=== PATIENT | female | born 1945 | race Caucasian/White ===

== ENCOUNTER 2021-02-27 07:03 | Day surgery (SDC) | payer MEDICARE, SELFPAY ==
[2021-02-27] VITALS (16 sets, daily range): BP systolic 59–151; BP diastolic 47–89; PULSE 75–86; RESP 12–18; TEMP 36.4–37.2; O2SAT 92–97; BMI 51.1
[2021-02-27 08:28] LABS: Hematocrit 37.1 % (37-47); Mean Corpuscular Hgb 31.6 pg (27.0-32.0); Mean Corpuscular Volume 90.3 fL (81-99); Mean Platelet Vol. 11.8 fl (6.2-12.0); Platelet Count 250 K/mm3 (150-450); RBC Distribution Width CV 14.3 % (11.6-14.6); RBC Distribution Width SD 46.9 fl (35.1-43.9); Red Blood Count 4.11 M/mm3 (4.2-5.4); White Blood Count 10.2 K/mm3 (4.4-11.0)
[2021-02-27 08:43] LABS: Anion Gap 8 (5-15); BUN 19 mg/dL (7-18); BUN/Creat Ratio 23.1 RATIO (10-20); Calcium,Total 9.2 mg/dL (8.5-10.1); Chloride 103 mmol/L (98-107); Creatinine, Serum 0.82 mg/dL (0.55-1.02); EST Glomerular Filtration Rate 72 mL/min (>60); Est Glom Filt Rate - Afr Amer 87 mL/min (>60); Estimated Creatinine Clearance 109.18 ml/min; Glucose 138 mg/dL (74-106); Potassium 3.1 mmol/L (3.5-5.1); Sodium Level 140 mmol/L (136-145)
--- NOTE | 2021-02-27 09:23 | PCM.HP.STD ---
HPI - General HPI Narrative CUCA FOOTE, is a 75 F who presents for urethral dilation and cystoscopy with possible bladder biopsy for recurrent urinary tract infections with urethral stenosis/stricture. Had infection last week, currently taking fosfomycin. Symptoms have improved. No fever. Not sure if still with infection. [facility] Medical History (Updated 02/27/21 @ 09:[address] Gina Ferrer MD) Arthritis Cancer Cardiology follow-up encounter Guillain-[place] High cholesterol History of echocardiogram History of edema History of hiatal hernia History of irregular heartbeat History of stress test Hypertension Leg cramps Non-smoker Shortness of breath on exertion Urethral stricture due to unspecified infection Urinary tract infection Vaginal atrophy Walker as ambulation aid Wears glasses Home Medications Lactobacillus acidophilus [Probiotic] 10,000 mmu cells PO DAILY 02/20/21 [History Last Taken Unknown] cephalexin 250 mg PO QHS 02/20/21 [History Last Taken Unknown] cholecalciferol (vitamin D3) [Vitamin D3] 75 mcg PO DAILY 02/20/21 [History Last Taken Unknown] d-mannose 2,000 mg PO DAILY 02/20/21 [History Last Taken Unknown] hydrochlorothiazide 25 mg PO DAILY 02/20/21 [History Last Taken Unknown] metoprolol tartrate 75 mg PO BID 02/20/21 [History Last Taken Unknown] aspirin 81 mg PO DAILY 02/27/21 [History Last Taken Unknown] fosfomycin tromethamine 1 packet PO 02/27/21 [History Last Taken 02/26/21] Allergy/AdvReac Type Severity Reaction Status Date / Time azithromycin Allergy Other Verified 02/27/21 07:45 [From Zithromax Z-Quinton] ciprofloxacin Allergy Other Verified 02/27/21 07:45 Penicillins [PCN] Allergy Other Verified 02/27/21 07:45 Sulfa (Sulfonamide Allergy Nausea/Vom/ Verified 02/27/21 07:45 Antibiotics) Diarrhea codeine AdvReac Nausea/Vom/ Verified 02/27/21 07:45 Diarrhea Surgical History Hx of biopsy Hx of section Hx of colonoscopy Hx of hysterectomy Hx of tonsillectomy Social History Smoking Status: Never smoker ROS Constitutional Constitutional: Reports systems reviewed and no addt'l complaints, except as documented; Denies excessive sweating or fever(s) Eyes Eyes: Reports systems reviewed and no addt'l complaints, except as documented ENT HEENT: Reports systems reviewed and no addt'l complaints, except as documented Cardiovascular Cardiovascular: Reports nausea; Denies chest pain, dyspnea, flutter in chest or lightheadedness Respiratory/Chest Respiratory/Chest: Denies cough, dyspnea or inability to speak Gastrointestinal Gastrointestinal: Reports abdominal pain, cramping and nausea; Denies taste impaired or vomiting Genitourinary Genitourinary: Reports dribbling, dysuria, urinary incontinence and urinary urgency Musculoskeletal Musculoskeletal: Reports systems reviewed and no addt'l complaints, except as documented Integumentary Integumentary: Reports systems reviewed and no addt'l complaints, except as documented Neurologic Neurologic: Reports systems reviewed and no addt'l complaints, except as documented Vital Signs Vital Signs Vital Signs: 02/27/21 07:52 02/27/21 07:59 Temperature 98.9 F Temperature Source Temporal Pulse Rate 77 Respiratory Rate 18 Respiratory Pattern Normal Blood Pressure 133/55 H Blood Pressure Mean 81 Blood Pressure Source Monitor Blood Pressure Position Semi-Fowlers Blood Pressure Location Left Arm Pulse Ox 97 Oxygen Delivery Method Room Air Weight Weight: 114.9 kg Body Mass Index (BMI) 51.1 Physical Exam Const alert, oriented x3 and no apparent distress HEENT normocephalic, head/scalp atraumatic and external ears normal Nose: external nose normal Mouth: lips normal and tongue normal Eyes General Eye: normal appearance of both eyes Neck supple General: normal visual inspection and trachea midline Lymph Lymphatic: no lymphedema noted Chest inspection of chest normal Chest: symmetrical chest wall rise Resp normal respiratory effort, normal air movement, no retractions and no use of accessory muscles Cardio regular rate and regular rhythm GI soft to palpation, non-tender and non-distended no CVA tenderness Back/Spine no CVA tenderness Extremity normal to inspection Skin no rashes or lesions noted, no wounds, skin turgor normal, no jaundice, no petechiae and no mottling Neuro oriented x3 and CN's II-XII intact bilaterally Psych mental status grossly normal, thought process normal, cooperative and affect normal Results Lab / Micro Data Result Diagrams: 02/27/21 08:13 02/27/21 08:13 Labs: Laboratory Results - last 24 hr 02/27/21 08:13: WBC 10.2, RBC 4.11 L, Hgb 13.0, Hct 37.1, MCV 90.3, MCH 31.6, MCHC 35.0, RDW Std Deviation 46.9 H, RDW Coeff of Carlos 14.3, Plt Count 250, MPV 11.8 02/27/21 08:13: Sodium 140, Potassium 3.1 L, Chloride 103, Carbon Dioxide 29.0, Anion Gap 8, BUN 19 H, Creatinine 0.82, Estim Creat Clear Calc 109.18, Est GFR (MDRD) Af Amer 87, Est GFR (MDRD) Non-Af 72, BUN/Creatinine Ratio 23.1 H, Glucose 138 H, Calcium 9.2 Assessment & Plan Assessment/Plan (1) Urinary tract infection: PLAN: UA with micro this morning. If negative, will proceed with urethral dilation, cystoscopy and possible bladder biopsy with fulguration if positive, will proceed with urethral dilation and cystoscopy in order to empty bladder better and clear infection. family and patient understand and agree to the plan. informed consent was obtained (2) Urethral stricture due to unspecified infection: (3) Vaginal atrophy:
--- NOTE | 2021-02-27 09:29 | PCM.OPRPT ---
Problems Associated Problem List Diagnoses (1) Urinary tract infection: (2) Urethral stricture due to unspecified infection: (3) Vaginal atrophy: Report of Operation Date of Procedure: 02/27/21 Pre-Operative Diagnosis: urinary tract infection, urethral stricture, vaginal atrophy Post-Operative Diagnosis: same Surgery/Procedure Performed:: urethral dilation, cystoscopy Surgeon: Gina Ferrer Type of Anesthesia: General Description of Procedure: presents for urethral dilation and with recurrent urinary tract infections who was unable to undergo a cystoscopic evaluation in the office secondary to a significant urethral stricture. She nowThe patient is a 75-year-old female cystoscopic evaluation. Informed consent was obtained. the infection has improved but is not sure that it is resolved. Her preoperative urine culture was positive and she was started on fosfomycin last week. She feels that A microscopic urinalysis was performed. She feels that the infection is improved but is not sure that it is 100% resolved. Because of this a preoperative microscopic urinalysis was obtained revealing continued bacteriuria. the decision was made to open the bladder for improved infection control without bladder biopsy. The patient was taken to the operating room and placed on the operating room table. Anesthesia monitored the head, neck, airway, IV access and vital signs throughout the case. Once anesthesia was appropriate ministered the patient was placed into dorsal lithotomy position was prepped and draped in usual sterile fashion. With difficulty, a 12 Lithuanian urethral sound was inserted through the urethra into the urinary bladder. Clear urine was obtained. Sequential dilators were used up to 24 Lithuanian. The stricture was in the distal aspect of the urethra. At this time the cystoscope was inserted through the urethra under direct visualization into the urinary bladder. There is increased detrusor hypertrophy and trabeculation with no evidence of obvious tumor. The bladder mucosa appeared erythematous and there was some mucus debris present. The urethra had no evidence of malignancy or abnormality other than stricture. At this time her bladder was emptied and the case was terminated. She was awakened and taken to the recovery room in good condition. There were no complications during this procedure. Grafts/Implants Used: none Complications none Admit VTE Documentation VTE Present on Admission: Yes VTE Mechan Device Prophylaxis: SCD's VTE Pharm Prophylaxis ordered?: No Reason prophylaxis not ordered:: Treatment Not Indicated
[2021-02-27 09:30] LABS: Mucous, Urine 0 SEEN /hpf (<or=2+)
--- NOTE | 2021-02-27 09:31 | DCINST_ITS ---
Discharge Instructions Diet Discharge Diet: No restrictions Activity Discharge Activity: Return to Normal Activity and May Shower Dressing / Incision Call your doctor if your incision/area has: Continuous Slow Oozing, Sudden Inc reased Bleeding, Increased Pain/ Swelling and Foul Smelling Discharge Call your doctor if you observe: Fever of 101 or Higher, Inability to urinate, Inability to have a bowel movement and Uncontrolled pain Follow Up Care Please Follow Up With: Gina Ferrer MD When: call office for appt Test Results: Test results from this visit will be discussed in further detail at your follow-up appointment, if applicable. Discharge Plan Admission Attending Provider: Gina Ferrer Discharge Orders/Prescriptions Prescriptions: Continued cephalexin 250 mg Tablet 250 mg PO QHS RF: 0 hydrochlorothiazide 25 mg Tablet 25 mg PO DAILY RF: 0 cholecalciferol (vitamin D3) [Vitamin D3] 25 mcg (1,000 unit) Capsule 75 mcg PO DAILY RF: 0 Probiotic 10 billion cell Capsule 10,000 mmu cells PO DAILY RF: 0 metoprolol tartrate 75 mg Tablet 75 mg PO BID RF: 0 d-mannose 500 mg Capsule 2,000 mg PO DAILY RF: 0 fosfomycin tromethamine 3 gram Packet 1 packet PO RF: 0 aspirin 81 mg Tablet 81 mg PO DAILY RF: 0 Referrals / Follow Up: ALEX IYER [Other] Disposition Disposition (needs filled in before D/C Order can be placed): Home, Self Care
[2021-02-27 09:36] LABS: Color, Urine Yellow (Yellow); Glucose, Dipstick Normal (Normal); Ketone-Dipstick Negative (Negative); Leukocyte Esterase-Dipstick 500 /ul (Negative); Nitrite-Dipstick Negative (Negative); Occult Blood-Urine 150 /ul (Negative); Protein-Dipstick 15 mg/dl (Negative); Urine Bilirubin Dipstick Negative (Negative); Urine Clarity Sl. Cloudy (Clear); Urine Urobilinogen Normal (Normal)
[2021-02-27] MEDS: Cefazolin 2 GM in 0.9% Normal Saline 100 ML IV (09:38)
[2021-02-27 09:49] LABS: Bacteria 1+ /hpf (None Seen); Red Blood Cells-Urine 10-25 SEEN /hpf (0-5); Squamous Epithelial Cells - UA 0-5 SEEN /hpf (5-10); White Blood Cells 25-50 SEEN /hpf (0-5)
--- NOTE | 2021-02-27 10:49 | SUR.PHASEI ---
PATIENT COMPLAINS OF DIZZINESS AND WEAKNESS WHEN HOB IS ELEVATED. NAUSEA MEDICINE GIVEN FOR NAUSEA. HER LAST BP WAS LOWER AT 87/59. FLUIDS OPENED UP VIA IV. HEAD LOWERED.WILL CONTINUE TO MONITOR.
== END 2021-02-27 13:59 | disposition home or self-care (01) ==
LOC: SDC 07:04 → AC 07:05
PROVIDERS: Referring Provider Urology; Visit Provider Urology
PROC: 0TBB8ZX Excision of Bladder, Via Natural or Artificial Opening Endoscopic, Diagnostic (ICD-10-PCS; CPT 52281; principal; 2021-02-27 08:40)
DX: N95.2 Postmenopausal atrophic vaginitis (principal); N35.82 Other urethral stricture, female; M19.90 Unspecified osteoarthritis, unspecified site; E78.00 Pure hypercholesterolemia, unspecified; I10 Essential (primary) hypertension; Z79.899 Other long term (current) drug therapy; Z79.82 Long term (current) use of aspirin; Z87.440 Personal history of urinary (tract) infections
CPT/HCPCS: 00910; 52281; 80048; 81001; 85027; 87086; 87088; J7120; J2405